=== PATIENT | female | born 1940 | race Caucasian/White ===

== ENCOUNTER → 2017-03-04 | Outpatient (CLI) | payer MEDICARE, BC ==
--- NOTE | 2017-03-08 07:26 | MM ---
Reason for exam: screening (asymptomatic). Last mammogram was performed 1 year ago. History: Patient is postmenopausal and has history of high-risk lesion on a previous biopsy at age 68. High risk right breast needle localzation of the right breast, May 27, 2009. High risk right mammotome panel of the right breast, May 10, 2009. Benign right mammotome panel of the right breast, March 26, 2008. Took hormonal contraceptives for 3 months beginning at age 21. Taking other hormone for 5 months beginning at age 67. Physical Findings: A clinical breast exam by your physician is recommended on an annual basis and results should be correlated with mammographic findings. MG 3D Screening Mammo W/Cad Bilateral CC and MLO view(s) were taken. Prior study comparison: March 03, 2016, bilateral MG 3d screening mammo w/cad. March 05, 2015, bilateral MG screening mammo w CAD. February 26, 2014, bilateral MG screening mammo w CAD. There are scattered fibroglandular densities. Previous mammotome biopsy in the right breast. There is chronic nodularity bilaterally. Stable diffuse scattered round and punctate calcifications. No significant changes when compared with prior studies. ASSESSMENT: Benign, BI-RAD 2 RECOMMENDATION: Routine screening mammogram of both breasts in 1 year.
== END | disposition home or self-care (01) ==
LOC: RADMAMWWP 13:59
PROVIDERS: ATTEND Family Medicine
DX: Z12.31 Encounter for screening mammogram for malignant neoplasm of breast (principal)
CPT/HCPCS: 77063; G0202

== ENCOUNTER → 2018-03-07 | Outpatient (CLI) | payer MEDICARE ==
--- NOTE | 2018-03-07 12:37 | MM ---
Reason for exam: screening (asymptomatic). Last mammogram was performed 1 year ago. History: Patient is postmenopausal and has history of high-risk lesion on a previous biopsy at age 68. High risk right breast needle localzation of the right breast, May 27, 2009. High risk right mammotome panel of the right breast, May 10, 2009. Benign right mammotome panel of the right breast, March 26, 2008. Took hormonal contraceptives for 3 months beginning at age 21. Taking other hormone for 5 months beginning at age 67. Physical Findings: A clinical breast exam by your physician is recommended on an annual basis and results should be correlated with mammographic findings. MG Screening Mammo w CAD Bilateral CC and MLO view(s) were taken. Prior study comparison: March 04, 2017, bilateral MG 3d screening mammo w/cad. March 03, 2016, bilateral MG 3d screening mammo w/cad. The breast tissue is heterogeneously dense. This may lower the sensitivity of mammography. There are benign appearing stable bilateral upper outer quadrant masses. Benign appearing bilateral calcifications. No suspicious abnormality. Post biopsy change on the right. No significant changes when compared with prior studies. ASSESSMENT: Benign, BI-RAD 2 RECOMMENDATION: Routine screening mammogram of both breasts in 1 year.
--- NOTE | 2018-03-07 16:06 | BD ---
EXAMINATION TYPE: Axial Bone Density DATE OF EXAM: 03/07/2018 COMPARISON: 03/16/2012 CLINICAL HISTORY: 77-year-old female screening for osteoporosis Height: 60 IN Weight: 203 LBS RISK FACTORS HISTORY OF: Active: YES Diet low in dairy products/other sources of calcium: YES Postmenopausal woman: AGE 54 Take estrogen and/or progesterone medications: NOT NOW How long: TOOK CONTROL FOR 3 MONTHS AT AGE 21 MEDICATIONS: Thyroid Medications: YES Which medication: Levothyroxine How Lon YEARS Additional Medications: VIT D, THYROID MEDS, DIABETES MEDS, EXAM MEASUREMENTS: Bone mineral densitometry was performed using the [employer]. Bone mineral density as measured about the Lumbar spine is: ----- L1-L4(G/cm2): 1.465 T Score Values are as follows: ----- L2: 1.8 ----- L3: 2.9 ----- L4: 3.4 ----- L1-L4: 2.4 Bone mineral density has: Increased 5.0% since study of: 03/16/2012 Bone mineral density about the R hip (g/cm2): 1.030 Bone mineral density about the L hip (g/cm2): 1.092 T Score values are as follows: -----R Neck: -0.1 -----L Neck: 0.4 -----R Total: 1.6 -----L Total: 2.2 Bone mineral density has: Decreased -5.7% since study of: 03/16/2012 IMPRESSION: Normal (Values between +1 and -1 indicate normal bone mass). Consider repeating this study in 5 year s or sooner if there is some new clinical indication. NOTE: T-SCORE=SD OF THE YOUNG ADULT MEAN.
== END | disposition home or self-care (01) ==
LOC: RADMAMWWP 06:46
PROVIDERS: ATTEND Family Medicine
DX: Z12.31 Encounter for screening mammogram for malignant neoplasm of breast (principal); Z13.820 Encounter for screening for osteoporosis
CPT/HCPCS: 77067; 77080

== ENCOUNTER → 2019-01-25 | Outpatient (CLI) | payer MEDICARE ==
--- NOTE | 2019-01-25 10:32 | US ---
EXAMINATION TYPE: US renal artery duplex complet DATE OF EXAM: 01/25/2019 COMPARISON: NONE CLINICAL HISTORY: N18.1 Chronic kidney disease; I10 hypertension;. Recent abnormal labs, HTN MEASUREMENTS: RENAL SIZE: Rt Kidney: 10.0 x 4.6 x 4.5 cm Lt Kidney: 9.2 x 4.6 x 3.9 cm RESISTANCE INDEX Right: 0.8 Left: 0.9 RA/AO RATIO (< 3.5 ) Right: 1.2 Left: 1.9 RA VELOCITY ( < 180 cm/s) Right: 139.2 Left: 220.5 Left kidney small in size when compared to right with cortical thinning and multiple cysts, largest cyst on left side measured= 1.1 x 0.9 x 1.2 cm Elevated velocities more on left with abnormal RI bilaterally Incidental finding gallstones IMPRESSION: 1. Findings indicative of left renal arterial stenosis with abnormal resistive index also on the righ t suggesting more mild degree of renal arterial stenosis than on the left. 2. Sonographic sequela of medical renal disease with multiple renal cysts are present. 3. Incidental cholelithiasis.
== END | disposition home or self-care (01) ==
LOC: RADUSWWP 08:56
PROVIDERS: ATTEND Family Medicine
DX: I12.9 Hypertensive chronic kidney disease with stage 1 through stage 4 chronic kidney disease, or unspecified chronic kidney disease (principal); N18.1 Chronic kidney disease, stage 1; N28.1 Cyst of kidney, acquired
CPT/HCPCS: 93975

== ENCOUNTER → 2019-03-08 | Outpatient (CLI) | payer MEDICARE ==
--- NOTE | 2019-03-09 11:44 | MM ---
Reason for exam: screening (asymptomatic). Last mammogram was performed 1 year ago. History: Patient is postmenopausal and has history of high-risk lesion on a previous biopsy at age 68. High risk right breast needle localzation of the right breast, May 27, 2009. High risk right mammotome panel of the right breast, May 10, 2009. Benign right mammotome panel of the right breast, March 26, 2008. Took hormonal contraceptives for 3 months beginning at age 21. Taking other hormone for 5 months beginning at age 67. Physical Findings: A clinical breast exam by your physician is recommended on an annual basis and results should be correlated with mammographic findings. MG 3D Screening Mammo W/Cad Bilateral CC and MLO view(s) were taken. Prior study comparison: March 07, 2018, bilateral MG screening mammo w CAD. March 04, 2017, bilateral MG 3d screening mammo w/cad. The breast tissue is heterogeneously dense. This may lower the sensitivity of mammography. Finding: There are typically benign dystrophic, round, linear calcifications in both breasts. There is a chronic nodularity in the left breast. Asymmetric breast tissue left outer quadrant, stable. There is no discrete abnormality. ASSESSMENT: Benign, BI-RAD 2 RECOMMENDATION: Routine screening mammogram of both breasts in 1 year.
== END | disposition home or self-care (01) ==
LOC: RADMAMWWP 08:39
PROVIDERS: ATTEND Family Medicine
DX: Z12.31 Encounter for screening mammogram for malignant neoplasm of breast (principal)
CPT/HCPCS: 77063; 77067

== ENCOUNTER → 2021-01-07 | Outpatient (CLI) | payer MEDICARE ==
--- NOTE | 2021-01-08 07:19 | US ---
EXAMINATION TYPE: US kidneys/renal and bladder DATE OF EXAM: 01/07/2021 COMPARISON: US 01/25/19 CLINICAL HISTORY: R94.4 Abn kidney test. Abnormal urine test per pt. EXAM MEASUREMENTS: Right Kidney: 9.7 x 5.0 x 4.7 cm Left Kidney: 9.9 x 4.6 x 4.3 cm Right Kidney: No hydronephrosis or masses seen,. Left Kidney: No hydronephrosis or shadowing renal calculi. There is a heterogeneous hypoechoic struct ure at the upper pole of the left kidney measuring 1.8 x 1.6 cm and another at the midpole measuring 1.7 x 1.4 cm. These may represent minimally complex hemorrhagic/proteinaceous cysts. Bladder: wnl Bilateral Jets seen: Yes Normal Post Void Residual: Not calculated. Patient stated she voided before exam. The urinary bladder is anechoic. Bilateral ureteral jets are seen. Incidental finding of gallstone. IMPRESSION: 1. Hypoechoic structures at the upper pole and mid pole of the left kidney most suggestive of complex cystic structure, such as hemorrhagic or proteinaceous cysts. 2. No hydronephrosis or shadowing renal calculi. 3. Incidental note of gallstone.
== END | disposition home or self-care (01) ==
LOC: RADUSWWP 10:05
PROVIDERS: ATTEND Family Medicine
DX: R94.4 Abnormal results of kidney function studies (principal)
CPT/HCPCS: 76770

== ENCOUNTER → 2021-09-16 | Outpatient (CLI) | payer MEDICARE ==
--- NOTE | 2021-09-16 18:00 | BD ---
EXAMINATION TYPE: Axial Bone Density DATE OF EXAM: 09/16/2021 COMPARISON: 03/07/2018 CLINICAL HISTORY: Postmenopausal screening Height: 60 IN Weight: 204 LBS RISK FACTORS HISTORY OF: Active: YES Diet low in dairy products/other sources of calcium: YES Postmenopausal woman: AGE 51 Lost more than 2 inches in height since high school: YES 3" MEDICATIONS: Thyroid Medications: YES Which medication: Synthroid How Lon YEARS Additional Medications: VIT D, THYROID MEDS, SUGAR PILL EXAM MEASUREMENTS: Bone mineral densitometry was performed using the [employer]. Bone mineral density as measured about the Lumbar spine is: ----- L1-L4(G/cm2): 1.424 T Score Values are as follows: ----- L2: 1.9 ----- L3: 2.8 ----- L4: 2.4 ----- L1-L4: 2.0 Bone mineral density has: Decreased -3.5% since study of: 03/07/2018 Bone mineral density about the R hip (g/cm2): 0.929 Bone mineral density about the L hip (g/cm2): 0.975 T Score values are as follows: -----R Neck: -0.8 -----L Neck: -0.5 -----R Total: 0.2 -----L Total: 0.8 Bone mineral density has: Decreased -14.3% since study of: 03/07/2018 IMPRESSION: Normal (Values between +1 and -1 indicate normal bone mass). Consider repeating this study in 5 year s or sooner if there is some new clinical indication. NOTE: T-SCORE=SD OF THE YOUNG ADULT MEAN.
--- NOTE | 2021-09-17 10:19 | MM ---
Reason for exam: screening (asymptomatic). Last mammogram was performed 2 years and 6 months ago. History: Patient is postmenopausal and has history of high-risk lesion on a previous biopsy at age 68. High risk right breast needle localzation of the right breast, May 27, 2009. High risk right mammotome panel of the right breast, May 10, 2009. Benign right mammotome panel of the right breast, March 26, 2008. Took hormonal contraceptives for 3 months beginning at age 21. Taking other hormone for 5 months beginning at age 67. Physical Findings: A clinical breast exam by your physician is recommended on an annual basis and results should be correlated with mammographic findings. MG Screening Mammo w CAD Bilateral CC and MLO view(s) were taken. Prior study comparison: March 08, 2019, bilateral MG 3d screening mammo w/cad. March 07, 2018, bilateral MG screening mammo w CAD. The breast tissue is heterogeneously dense. This may lower the sensitivity of mammography. Stable benign calcifications. There is no discrete abnormality. No significant changes when compared with prior studies. ASSESSMENT: Benign, BI-RAD 2 RECOMMENDATION: Routine screening mammogram of both breasts in 1 year.
== END | disposition home or self-care (01) ==
LOC: RADMAMWWP 13:19
PROVIDERS: ATTEND Family Medicine
DX: Z12.31 Encounter for screening mammogram for malignant neoplasm of breast (principal); M84.80 Other disorders of continuity of bone, unspecified site
CPT/HCPCS: 77067; 77080

== ENCOUNTER → 2021-10-16 | Outpatient (CLI) | payer MEDICARE ==
--- NOTE | 2021-10-16 11:57 | US ---
EXAMINATION TYPE: US kidneys/renal and bladder DATE OF EXAM: 10/16/2021 COMPARISON: US 01/07/21 CLINICAL HISTORY: 81-year-old female N28.1 RENAL CYST. TECHNIQUE: Multiple sonographic images of the kidneys and bladder are obtained. FINDINGS: EXAM MEASUREMENTS: Right Kidney: 10.1 x 5.4 x 4.7 cm Left Kidney: 10.4 x 4.9 x 4.5 cm Post Void Residual Volume: 0 mL Right Kidney: No hydronephrosis or masses seen. There are echogenic foci without shadowing measuring up to 4 mm. Also, 0.7 cm inferior pole cyst Left Kidney: No hydronephrosis or masses seen. Multiple cysts seen, largest measuring: Upper pole = 1.8 x 1.9 x 1.7 cm Mid pole = 1.2 x 1.2 x 1.1 cm Bladder: Underdistention of the bladder limits its evaluation. Bilateral Jets seen: Yes Normal Post Void Residual: Yes Incidental: Multiple mobile gallstones again noted. IMPRESSION: 1. No hydronephrosis. 2. Punctate echogenic foci in the right kidney measuring up to 4 mm may represent prominent vascular reflectors versus tiny nonobstructive calculi. 3. Scattered cysts in the kidneys, more so on the left, largest measuring up to 1.9 cm versus 1.8 cm, previously. 4. No sonographic evidence for urinary retention.
== END | disposition home or self-care (01) ==
LOC: RADUSWWP 08:53
PROVIDERS: ATTEND Urology
DX: N28.1 Cyst of kidney, acquired (principal)
CPT/HCPCS: 76770

== ENCOUNTER → 2024-12-01 | Outpatient (CLI) | payer MEDICARE ==
--- NOTE | 2024-12-01 19:36 | CA ---
Transthoracic Echo Report Name: Aubree Torres Age: 84 Gender: F : 1940 Exam Date: 12/01/2024 14:24 Exam Location: [facility] Ht (in): Wt (lb): Ordering Physician: Mable Lang MD Attending/Referring Phys: [employer]ician [employer] Anahy Santiago RDCS Procedure CPT: Indications: I34.1 NONRHEUMATIC MITRAL (VALVE) PROLAPSE Cardiac Hx: Technical Quality: Good Contrast 1: Total Dose (mL): Contrast 2: Total Dose (mL): MEASUREMENTS (Male / Female) Normal Values 2D ECHO LV Diastolic Diameter PLAX 4.6 cm 4.2 - 5.9 / 3.9 - 5.3 cm LV Systolic Diameter PLAX 2.9 cm IVS Diastolic Thickness 1.1 cm 0.6 - 1.0 / 0.6 - 0.9 cm LVPW Diastolic Thickness 1.2 cm 0.6 - 1.0 / 0.6 - 0.9 cm LV Relative Wall Thickness 0.5 RV Internal Dim ED PLAX 1.7 cm LA Systolic Diameter LX 4.2 cm 3.0 - 4.0 / 2.7 - 3.8 cm LV Diastolic Volume MOD BP 58.3 cm??? 67 - 155 / 56 - 104 cm??? LV Systolic Volume MOD BP 21.2 cm??? 22 - 58 / 19 - 49 cm??? LV Ejection Fraction MOD BP 63.7 % >= 55 % LV Diastolic Volume MOD 4C 74.5 cm??? LV Systolic Volume MOD 4C 24.3 cm??? LV Ejection Fraction MOD 4C 67.4 % LV Diastolic Length 4C 7.4 cm LV Systolic Length 4C 5.2 cm LV Diastolic Volume MOD 2C 43.2 cm??? LV Systolic Volume MOD 2C 16.9 cm??? LV Ejection Fraction MOD 2C 60.9 % LV Diastolic Length 2C 6.8 cm LV Systolic Length 2C 5.7 cm LA Volume 78.0 cm??? 18 - 58 / 22 - 52 cm??? M-MODE Aortic Root Diameter MM 2.3 cm LA Systolic Diameter MM 3.9 cm LA Ao Ratio MM 1.7 AV Cusp Separation MM 1.2 cm DOPPLER AV Peak Velocity 248.5 cm/s AV Peak Gradient 24.7 mmHg AV Mean Velocity 172.8 cm/s AV Mean Gradient 13.2 mmHg AV Velocity Time Integral 55.9 cm AI Peak Velocity 408.2 cm/s AI Peak Gradient 66.6 mmHg AI Pressure Half Time 813.1 ms LVOT Peak Velocity 143.4 cm/s LVOT Peak Gradient 8.2 mmHg LVOT Velocity Time Integral 34.0 cm MV Area PHT 2.8 cm??? Mitral E Point Velocity 93.2 cm/s Mitral A Point Velocity 100.8 cm/s Mitral E to A Ratio 0.9 MV Deceleration Time 271.7 ms TR Peak Velocity 335.5 cm/s TR Peak Gradient 45.0 mmHg FINDINGS Left Ventricle Left ventricular ejection fraction is estimated at 55-60%. Mildly increased septal wall thickness. Mildly increased posterior wall thickness. Normal left ventricular systolic function with no obvious regional wall motion abnormalities. Left ventricular cavity size normal. Right Ventricle Normal right ventricular size and function. Mild pulmonary hypertension. Right Atrium Moderate right atrial dilatation. Left Atrium Severely increased left atrial volume. Mildly increased left atrial area. Mitral Valve Mitral valve thickened. Mitral annular calcification. Mild mitral regurgitation. Aortic Valve Trileaflet aortic valve. Mild aortic stenosis with a peak gradient of 25 mmHg and a mean gradient of 13 mmHg. Mild aortic regurgitation. Tricuspid Valve Structurally normal tricuspid valve. No tricuspid stenosis. Moderate tricuspid regurgitation. Pulmonic Valve Structurally normal pulmonic valve. Mild pulmonic regurgitation. No pulmonic stenosis. Pericardium No pericardial or pleural effusion. Aorta Normal size aortic root and proximal ascending aorta. CONCLUSIONS Normal biventricular systolic function Aortic sclerosis with mild stenosis and mild insufficiency Mild mitral regurgitation Mild pulmonary hypertension Previewed by: Dr. Nick Garcia MD (Electronically Signed) Final Date: 01 December 2024 19:35
== END | disposition home or self-care (01) ==
LOC: RADECHMAIN 13:57
PROVIDERS: ATTEND Family Medicine
DX: I08.0 Rheumatic disorders of both mitral and aortic valves (principal); I27.20 Pulmonary hypertension, unspecified
CPT/HCPCS: 93306

== ENCOUNTER → 2025-01-04 | Outpatient (CLI) | payer MEDICARE ==
--- NOTE | 2025-01-04 13:19 | US ---
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 Right Kidney: No hydronephrosis. A few cortical cysts are present, largest measured at mid inf= 1.2 x 1.1 x 1.3 cm Left Kidney: No hydronephrosis. Multiple scattered renal cortical cysts, largest measured at upper m edial = 1.9 x 1.7 x 2.1 cm Bladder: No gross abnormality. Bilateral Jets seen Normal Post Void Residual: Yes IMPRESSION: 1. Changes of bilateral chronic medical renal disease. 2. Numerous bilateral renal cortical cysts measuring up to 2.1 cm versus 1.9 cm, previously. 3. No sonographic evidence for urinary retention. Postvoid bladder volume 5 mL. [facility], , 01/04/2025 1:17 PM
[2025-01-04 15:19] LABS: Basophils # (A) 0.04 X 10*3/uL (0.00-0.10); Basophils % (A) 0.7 %; Eosinophils # (A) 0.02 X 10*3/uL (0.04-0.35); Eosinophils % (A) 0.4 %; HCT 34.7 % (37.2-46.3); HGB 10.1 g/dL (12.0-15.0); Lymphocytes # (A) 1.11 X 10*3/uL (0.90-5.00); Lymphocytes % (A) 19.5 %; MCH 25.4 pg (27.0-32.0); MCHC 29.1 g/dL (32.0-37.0); MCV 87.4 FL (80.0-97.0); Mean Platelet Volume 10.7 FL (9.5-12.2); Monocytes # (A) 0.43 X 10*3/uL (0.20-1.00); Monocytes % (A) 7.6 %; NRBC Per 100 WBC 0 X 10*3/uL (0.00-0.01); Neutrophils # (A) 4.07 X 10*3/uL (1.80-7.70); Neutrophils % (A) 71.4 %; Platelet Count 353 X 10*3/uL (140-440); RBC 3.97 X 10*6/uL (4.10-5.20); RDW 18.6 % (11.5-14.5); WBC 5.69 X 10*3/uL (4.50-10.00)
[2025-01-04 16:08] LABS: % Iron Saturation 14.29 (12.00-45.00); Albumin 4.6 g/dL (3.8-4.9); BUN/Creat Ratio 19.74 Ratio (12.00-20.00); Blood Urea Nitrogen 45.4 mg/dL (9.0-27.0); Calcium 9.9 mg/dL (8.7-10.3); Carbon Dioxide 17.9 mmol/L (21.6-31.8); Chloride 104 mmol/L (96-109); Ferritin 18.1 ng/mL (10.0-291.0); Glucose 138 mg/dL (70-110); Iron 72 UG/DL (50-170); Magnesium 2.2 mg/dL (1.5-2.4); Phosphorus 4.7 mg/dL (2.4-5.1); Potassium 5.5 mmol/L (3.5-5.5); Sodium 138 mmol/L (135-145); Total Iron Binding Capacity 504 UG/DL (228-460); Uric Acid 7.4 mg/dL (2.9-7.7)
== END | disposition home or self-care (01) ==
LOC: RADUSWWP 11:32
PROVIDERS: ATTEND Internal Medicine Nephrology
DX: N28.1 Cyst of kidney, acquired (principal); E55.9 Vitamin D deficiency, unspecified; N25.81 Secondary hyperparathyroidism of renal origin; M10.9 Gout, unspecified; N39.0 Urinary tract infection, site not specified; N18.32 Chronic kidney disease, stage 3b; D63.1 Anemia in chronic kidney disease; R80.9 Proteinuria, unspecified
CPT/HCPCS: 76770; 80048; 82040; 82043; 82306; 82570; 82728; 83540; 83550; 83735; 83970; 84100; 84166; 84550; 85025; 86334; 86335